=== PATIENT | male | born 1980 | race African-American/Black ===

== ENCOUNTER 2024-08-23 02:39 | Emergency (ER) | payer MEDICAID ==
[~2024-08-23] VITALS: Ht 172.7 cm; Wt 79.0 kg
[2024-08-23 02:54] VITALS: BP 148/94; PULSE 94; RESP 18; TEMP 36.8; O2SAT 98
[2024-08-23] MEDS ORDERED: MAGNESIUM/ALUMINUM HYDROXIDE/SIMETHICONE 30ML UDC PO STA (04:15)
[2024-08-23] MEDS ORDERED: ONDANSETRON 4MG ODT PO STA (04:15)
[2024-08-23] MEDS ORDERED: VISCOUS LIDOCAINE 2% 15 ML UDC PO STA (04:15)
== END 2024-08-23 05:39 | disposition left against medical advice (07) ==
LOC: ER 03:00
DX: R11.2 Nausea with vomiting, unspecified (principal); F41.9 Anxiety disorder, unspecified; Z53.21 Procedure and treatment not carried out due to patient leaving prior to being seen by health care provider